=== PATIENT | male | born 1940 | race Caucasian/White ===

== ENCOUNTER 2021-01-19 12:42 | Emergency (ER) | payer OTHER ==
[2021-01-19] MEDS ORDERED: Ondansetron PF 4 MG/2 ML Vial ONE (13:43)
[2021-01-19 14:27] LABS: Bilirubin 1+ (Negative); Blood, Urine 10 (Negative); Clarity Clear (Clear); Glucose, Urine (Dipstick) Normal (Negative); Ketone, Urine Negative (Negative); Leukocyte 25 (Negative); Nitrite Negative (Negative); Protein, Urine (Dipstick) 100 mg/dl (Neg-Trace); Specific Gravity, Urine 1.015 (1.002-1.036); Urobilinogen 12 mg/dL (Less than 2)
[2021-01-19 14:32] LABS: #Eosinphils 0.1 10x3/uL (0.0-0.5); #Monocytes 0.5 10x3/uL (0.0-1.1); #Neutrophils 3.1 10x3/uL (1.5-8.4); %Basophils 0.4 % (0.0-2.0); %Eosinophils 1.7 % (0.0-6.0); %Lymphocytes 21.8 % (18.0-47.0); %Monocytes 9.7 % (0.0-10.0); %Neutrophils 65.8 % (40.0-75.0); Hemoglobin 13.3 g/dL (13.5-17.5); Mean Platelet Volume 10.9 fl (7.4-10.4); Platelet Count 131 10x3/uL (150-450); Red Blood Cell (RBC) Count 4.29 10x6/uL (4.32-5.72); White Blood Cell (WBC) Count 4.6 10x3/uL (3.5-10.5)
[2021-01-19 14:39] LABS: ALT (SGPT) 383 U/L (8-55); AST (SGOT) 189 U/L (5-34); Albumin 3.8 g/dL (3.4-4.8); Alkaline Phosphatase 508 U/L (40-110); Anion Gap 15 mmol/L (10-20); BUN (Urea Nitrogen) 33 mg/dL (8.4-25.7); Calc. Creatinine Clearance 0 mL/min (70-130); Calcium 8.5 mg/dL (7.8-10.44); Carbon Dioxide 20 mmol/L (23-31); Chloride 106 mmol/L (98-107); Globulin 3.6 g/dL (2.4-3.5); Glucose 114 mg/dL (83-110); Lipase 76 U/L (8-78); Potassium 4.4 mmol/L (3.5-5.1); Protein, Total 7.4 g/dL (5.8-8.1); Sodium 137 mmol/L (136-145)
[2021-01-19 14:42] LABS: Bacteria/HPF Rare-Few HPF (None Seen); WBC/HPF 0-3 HPF (0-3)
[2021-01-19] MEDS ORDERED: Cefepime 2 GM VIAL ONE (16:45)
[2021-01-19 16:56] LABS: INR-International Normal Ratio 2.4; PTT 35.4 sec (22.0-33.0); Prothrombin Time 25.8 sec (9.5-12.1)
== END 2021-01-19 22:43 | disposition short-term general hospital (02) ==
LOC: CSHERS 12:42 → EEVIPCON 12:42 → CSHERS 22:43
DX: K81.0 Acute cholecystitis (principal); R91.8 Other nonspecific abnormal finding of lung field; K86.89 Other specified diseases of pancreas; I12.9 Hypertensive chronic kidney disease with stage 1 through stage 4 chronic kidney disease, or unspecified chronic kidney disease; N18.9 Chronic kidney disease, unspecified; Z86.711 Personal history of pulmonary embolism; Z79.82 Long term (current) use of aspirin; Z79.01 Long term (current) use of anticoagulants; Z79.899 Other long term (current) drug therapy
CPT/HCPCS: 74177; 76705; 80053; 81003; 81015; 83605; 83690; 85025; 85610; 85730; 87040; 87086; 93005; 96365; 96366; 96367; 96375; J0692; J2405; J3370